=== PATIENT | male | born 1960 | race Caucasian/White ===

== ENCOUNTER 2016-12-27 20:00 | Emergency (ER) ==
[2016-12-27] MEDS ORDERED: LIDOCAINE 1 % AMP 5 ML (SUTURES) SUBCUT STA (20:05)
[2016-12-27 20:12] VITALS: BP 127/80; TEMP 99.5; BMI 28.8
--- NOTE | 2016-12-27 20:23 | ED.PDOC ---
General ED Provider: Dr. KYLEE MATAMOROS-ER Chief Complaint: Finger Laceration Stated Complaint: i cut my finger on a lawnmower blade(it wasnt running) Time Seen by Physician: 20:21 Mode of Arrival: Walk-In Information Source: Patient Exam Limitations: No limitations Primary Care Provider: ADARSH HERNANDEZ Nursing and Triage Documentation Reviewed and Agree: Yes Skin Complaint Exam - Laceration/Abrasion/Hand Complaint/Exam Location of Injury: Left, Digit #4 Mechanism of Injury: Laceration Onset/Duration: 4hrs Symptoms Are: Still present Initial Severity: Mild Current Severity: Mild Aggravating: Movement Alleviating: Compression Associated Signs and Symptoms: Denies: Fever, Chills, Erythema, Numbness, Tingling Differential Diagnoses: Laceration Review of Systems - Review Of Systems Constitutional: Reports: No symptoms Eyes: Reports: No symptoms Ears, Nose, Mouth, Throat: Reports: No symptoms Respiratory: Reports: No symptoms Cardiac: Reports: No symptoms GI: Reports: No symptoms : Reports: No symptoms Musculoskeletal: Reports: No symptoms Skin: Reports: No symptoms Neurological: Reports: No symptoms Endocrine: Reports: No symptoms Hematologic/Lymphatic: Reports: No symptoms All Other Systems: Reviewed and Negative Past Medical History - Past Medical History Endocrine: Reports: None Cardiovascular: Reports: None Respiratory: Reports: None Hematological: Reports: None Gastrointestinal: Reports: None Genitourinary: Reports: None Neuro/Psych: Reports: Anxiety Musculoskeletal: Reports: Other Cancer: Reports: None - Surgical History General Surgical History: Reports: Cholecystectomy - Family History Family History: Reports: None - Social History Smoking Status: Never smoker Hx Substance Use: No Alcohol Screening: None - Immunizations Tetanus Shot up to Date: Yes Physical Exam - Physical Exam Appearance: Well-appearing, No pain distress, Well-nourished Pain Distress: Mild Eyes: ABDIEL ENT: Ears normal, Nose normal, Oropharynx normal Neck: Supple Respiratory: Airway patent, Breath sounds clear, Breath sounds equal, Respirations nonlabored Cardiovascular: RRR, Pulses normal, No rub, No murmur GI/: Soft, Nontender, No masses, Bowel sounds normal, No Organomegaly Musculoskeletal: Normal strength, ROM intact, No edema, No calf tenderness Skin: Warm, Dry, Normal color Neurological: Sensation intact, Motor intact, Reflexes intact, Cranial nerves intact, Alert, Oriented Psychiatric: Affect appropriate, Mood appropriate Procedures - Laceration/Wound Repair No standard instances Wound Description: Linear Wound Length (cm): 1cm Wound Explored: Clean Wound Irrigated: Yes Wound Prep: Hibiclens Anesthesia: Lidocaine Wound Margins: Revised Wound Repaired With: Sutures Suture Size and Type: 2 5.o prolene Number of Sutures: 2 Layer Closure?: No Sterile Dressing Applied?: Yes Splint Applied?: No Sling Applied?: No Re-Evaluation - Re-Evaluation Time of Re-Evaluation: 20:23 Status: Improved Vital Signs Stable: Yes Pain Level: 1 Appearance: NAD Lungs: Clear Skin: Warm and Dry Neuro: Alert and Oriented X3 CV: RRR Critical Care Note - Critical Care Note Total Time (mins): 0 Course - Course Orders, Labs, Meds: Orders Category Date Time Status Lidocaine HCl/Pf [Lidocaine 1 % Amp 5 ml (Sutures)] MEDS 12/27/16 20:05 Discontinued 5 ml SUBCUT ONCE STA Medications Discontinued Medications Generic Name Dose Route Start Last Admin Trade Name Freq PRN Reason Stop Dose Admin Lidocaine HCl 5 ml 12/27/16 20:05 12/27/16 20:15 Lidocaine 1 % Amp 5 Ml (Sutures) SUBCUT 12/27/16 20:06 5 ml ONCE STA Administration Vital Signs: Temp Pulse Resp BP Pulse Ox 12/27/16 20:01 99.5 F 63 20 127/80 97 Departure - Departure Time of Disposition: 20:23 Disposition: HOME SELF-CARE Discharge Problem: Laceration of finger Instructions: Laceration (ED), Care For Your Stitches (ED), Finger Laceration ( ED) Condition: Good Pt referred to PMD for follow-up: Yes Additional Instructions: suture care--sutures out in 7 days..return if any signs of infection Allergies/Adverse Reactions: Allergies No Known Allergies Allergy (Verified 12/27/16 20:10) Home Medications: Ambulatory Orders Bupropion HCl [Wellbutrin] 100 mg PO BID 03/21/15 Disposition Discussed With: Patient, Family
== END 2016-12-27 20:30 | disposition home or self-care (01) ==
LOC: ED 20:00
DX: S61.215A Laceration without foreign body of left ring finger without damage to nail, initial encounter (principal); W45.8XXA Other foreign body or object entering through skin, initial encounter
CPT/HCPCS: 99283